=== PATIENT | female | born 1990 ===

== ENCOUNTER → 2018-05-10 | Outpatient (REF) | payer OTHER ==
[2018-05-10 17:24] LABS: URIC ACID 3.1 MG/DL (2.6-6.0)
[2018-05-10 17:24] LABS: RHEUMATOID FACTOR QUANT < 10.0 IU/ML (<15.0)
[2018-05-10 19:29] LABS: ERYTHROCYTE SEDIMENTATION RATE 4 mm/hr (0-20)
[2018-05-12 14:13] LABS: ANTINUCLEAR ANTIBODIES DIRECT Negative (Negative)
== END ==
LOC: M LAB REF 16:24
DX: M25.50 Pain in unspecified joint (principal)